=== PATIENT | female | born 1980 | race Caucasian/White ===

== ENCOUNTER 2018-05-02 10:26 | Outpatient (CLI) | payer OTHER ==
[~2018-05-02 10:26] MED LIST: DOCU-131 PO; HYDR-3240 PO; IBUP-1222 PO
== END 2018-05-02 11:10 | disposition home or self-care (01) ==
LOC: LDOP 10:26
PROVIDERS: ATTEND Obstetrics & Gynecology Maternal & Fetal Medicine
DX: O36.8130 Decreased fetal movements, third trimester, not applicable or unspecified (principal); Z3A.37 37 weeks gestation of pregnancy
CPT/HCPCS: 59025; 99201; G0463